=== PATIENT | female | born 1960 | race Caucasian/White ===

== ENCOUNTER 2020-08-22 17:03 | Inpatient (IN) ==
--- NOTE | 2020-08-22 16:56 | Emergency Department Note ---
Impression & Plan ICH (intracerebral hemorrhage), Acute right-sided weakness, Anisocoria ED Provider Note NAME: CHEMA CARVALHO AGE: 60 SEX: F : 1960 ARRIVES VIA: Ambulance INFORMANT: Patient, ED PROVIDER(S): Hitesh Dominique MD Chief Complaint: Strokelike symptoms HPI: I did receive a medical command call from EMS due to concern for a possible stroke in a 61-year-old patient who is presenting due to concern for the only r esponsive to painful stimuli. Patient reportedly had left-sided facial droop and right pupil dilated. Patient's BSG was normal. The patient does wear 3 L at all times satting at 98% with normal heart rate and blood pressure. Last known well was noon. No reported blood thinners or trauma. The patient is a dialysis patient did receive dialysis yesterday. Patient did arrive and the patient did move the left side but was minimally responsive. Nonverbal. The patient does have left greater than right anisocoria with a leftward gaze. Patient is on Eliquis for history of A. fib. I did review the transfer note which stated that the nurse that evaluated the patient and that she was not responding appropriately. Patient does not normal from her baseline. ROS: See HPI for pertinent positives and negatives. A total of 10 systems were reviewed and otherwise negative. Past medical history: See below Surgical history: See below Social history: See below Physical Exam: GENERAL: Significant distress, nasal cannula in place. EYE EXAM: Normal conjunctiva. Left greater than right anisocoria, virtually nonreactive. NECK: Supple, no nuchal rigidity, no adenopathy, non-tender. No signs of meningismus. LUNGS: Clear to auscultation. Normal chest wall mechanics. HEART: NSR, no MRG. ABDOMEN: Abdomen soft, non-tender, normo-active bowel sounds, no masses, no rebound or guarding. BACK: No CVA TTP. SKIN: No rashes and no bruising. UPPER EXTREMITIES: Left upper extremity AV fistula in place with palpable thrill. LOWER EXTREMITIES: Grossly normal, no edema. NEURO EXAM: Left-sided greater than right anisocoria, L gaze preference, right- sided facial droop, right-sided weakness and neglect, nonverbal. Responsive to pain. GCS of 7. Differential diagnoses: Infection, dehydration, metabolic abnormality, hypo/hyperglycemia, electrolyte disturbance, anemia, hypoxia, cardiac sources, intracerebral event, toxicologic, neurologic, as well as other pathologies. Course: Patient was seen and evaluated the bedside. Full history physical exam was performed. Imaging Studies: See below Cardiac monitoring: An order was placed for continuous cardiac monitoring. The monitor shows a rate of 88 with sinus rhythm. MDM: Patient was seen due to concern for significant strokelike symptoms. The patient did have a very high NIH. A code stroke was initiated and a CT of the head does show a very large left-sided bleed with significant shift. I did call the patient's mother who stated that she would not want aggressive interventions, chest compressions or intubation. I did briefly discuss the case and the CAT scan of the brain with the telestroke neurologist Dr. Cerna who did agree that given the significant shift, large size of bleed, and poor exam that the patient would likely have a very poor functional outcome. I did call the patient's mother, Ms. Munguia, back again who did agree that she just wanted to make her daughter comfortable. She did not want any aggressive interventions, chest compressions or intubation. A morphine drip was ordered. Dry nasal Covid swab was ordered I did speak the on-call hospitalist Dr. Cox. The patient was admitted to the medicine service. Critical Care: I have personally spent 36 minutes of critical care time in direct management of this patient. This includes bedside care, interpretation of diagnostic studies, and testing, discussion with consultants, patient, and family members, and other require inpatient management activities. This 36 minutes is in excess of all separately billable procedures. Past Med/Surg History Medical History AVF (arteriovenous fistula) ESRD (end stage renal disease) H/O: HTN (hypertension) Social History Smoking Status: Unknown if ever smoked Feels Safe at Home: Yes Allergies Allergies Allergy/AdvReac Type Severity Reaction Status Date / Time aspirin Allergy Unknown Abdominal Unverified 08/16/20 14:19 Pain Home Meds Home Medications Medication Instructions Recorded Confirmed amlodipine 5 mg PO QAM 08/16/20 08/22/20 apixaban 5 mg PO BID 08/16/20 08/22/20 atorvastatin 80 mg PO HS 08/16/20 08/22/20 calcium acetate 667 mg PO QID 08/16/20 08/22/20 cholecalciferol (vitamin D3) 125 mcg PO BID 08/16/20 08/22/20 [Vitamin D3] docusate sodium 100 mg PO BID 08/16/20 08/22/20 famotidine 20 mg PO 3XWK 08/16/20 08/22/20 furosemide 80 mg PO DAILY@59908/16/20 08/22/20 insulin glargine [Lantus U-100 20 unit SUBCUT Q12H 08/16/20 08/22/20 Insulin] isosorbide mononitrate 30 mg PO QAM 08/16/20 08/22/20 levothyroxine 175 mcg PO DAILY@0608/16/20 08/22/20 nitroglycerin 0.4 mg SUBLINGUAL Q5M PRN 08/16/20 08/22/20 nystatin 1 applic TOPICAL BID 08/16/20 08/22/20 pantoprazole 40 mg PO BID 08/16/20 08/22/20 umeclidinium [Incruse Ellipta] 1 inh INHALATION QAM 08/16/20 08/22/20 B complex with C 20-folic acid 1 cap PO HS 08/22/20 08/22/20 [Nephrocaps] albuterol sulfate [ProAir HFA] 2 puff INHALATION Q4H PRN 08/22/20 08/22/20 citalopram 40 mg PO QAM 08/22/20 08/22/20 darbepoetin marianna in polysorbat 60 mcg SUBCUT WK 08/22/20 08/22/20 [Aranesp (in polysorbate)] metoprolol succinate 50 mg PO QAM 08/22/20 08/22/20 Results & Data (ED) Vital Signs Vital Signs - 24 hr 08/22/20 17:15 08/22/20 17:21 08/22/20 17:25 Temperature 37.4 C Temperature Source Oral Pulse Rate 85 Pulse Rate [Apical] 89 Respiratory Rate 18 Respiratory Effort / Characteristics Blood Pressure 151/106 H Blood Pressure [Right Arm] 174/77 H Blood Pressure Mean 121 Blood Pressure Mean [Right Arm] 109 Pulse Oximetry 100 97 Oxygen Delivery Method Nasal Cannula Nasal Cannula Nasal Cannula Oxygen Flow Rate 3 3 3 Sepsis New/Unexplained Change in Mental Status No Sepsis Action Taken by Nursing No Action Required 08/22/20 17:30 08/22/20 18:01 Temperature Temperature Source Pulse Rate Pulse Rate [Apical] 89 88 Respiratory Rate 18 20 Respiratory Effort / Characteristics Non-Labored Spontaneous Blood Pressure Blood Pressure [Right Arm] 166/67 H 173/80 H Blood Pressure Mean Blood Pressure Mean [Right Arm] 100 111 Pulse Oximetry 98 100 Oxygen Delivery Method Nasal Cannula Nasal Cannula Oxygen Flow Rate 3 3 Sepsis New/Unexplained Change in Mental Status Sepsis Action Taken by Longterm Medications Current Medication List: was personally reviewed by me Laboratory Data Attestation: I reviewed the patient's lab results. Result diagrams: 08/22/20 17:14 Lab Results 08/22/20 08/22/20 08/22/20 Range/Units 17:14 17:14 17:14 PT Cancelled INR Cancelled APTT Cancelled PTT Ratio Cancelled Sodium Cancelled Potassium Cancelled Chloride Cancelled Carbon Dioxide Cancelled Anion Gap Cancelled BUN Cancelled Creatinine Cancelled Est Cr Clr Drug Dosing Cancelled Est GFR ( Amer) Cancelled Est GFR (Non-Af Amer) Cancelled BUN/Creatinine Ratio Cancelled Glucose Cancelled Calcium Cancelled Magnesium Cancelled Total Bilirubin Cancelled AST Cancelled ALT Cancelled Alkaline Phosphatase Cancelled Troponin I Cancelled Total Protein Cancelled Albumin Cancelled Globulin Cancelled Albumin/Globulin Ratio Cancelled COVID-19 Eval Order SARS-CoV-2, RNA, NAAT (NEGATIVE) Blood Type Cancelled Antibody Screen Cancelled 08/22/20 08/22/20 Range/Units 17:40 17:40 PT INR APTT PTT Ratio Sodium Potassium Chloride Carbon Dioxide Anion Gap BUN Creatinine Est Cr Clr Drug Dosing Est GFR ( Amer) Est GFR (Non-Af Amer) BUN/Creatinine Ratio Glucose Calcium Magnesium Total Bilirubin AST ALT Alkaline Phosphatase Troponin I Total Protein Albumin Globulin Albumin/Globulin Ratio COVID-19 Eval Order Covid19 IDNow atMMDC SARS-CoV-2, RNA, NAAT NEGATIVE (NEGATIVE) Blood Type Antibody Screen Administered Medications Morphine Sulfate (Morphine Sulf/Nss) 250 mg in 250 mls @ 1 mls/hr IV .Q96H [facility]; Protocol Stop: 09/05/20 17:29 Last Admin: 08/22/20 17:39 Dose: 1 mg/hr, 1 mls/hr Documented by: [id number] Cosigned by: [id number] Imaging Data Radiologist's Impression: Head CT 08/22/20 17:06 CT head/brain wo con CLINICAL HISTORY: R sided weakness, anisocoria COMPARISON STUDY: No previous studies for comparison. TECHNIQUE: Axial CT of the brain is performed from the vertex to the skull base. IV contrast was not administered for this examination. A dose lowering technique was utilized adhering to the principles of ALARA. CT DOSE: 773.57 mGy.cm FINDINGS: There is a 7.8 cm intraparenchymal hemorrhage involving the left frontal and parietal lobes and left thalamus. There is surrounding vasogenic edema with effacement of the cortical sulci. There is marked mass effect on the ventricles with 15 mm of [id number] midline shift. There is equivocal decreased attenuation involving the posterior aspect of the corpus callosum There is early hydrocephalus with dilatation of the temporal horns. There is no evidence of acute sinusitis IMPRESSION: 1. Acute 7.8 cm left hemispheric intraparenchymal hemorrhage with secondary white matter edema, cortical effacement, and mass effect with 15 mm of left-to- right midline shift. There is early hydrocephalus. This report was discussed with Dr. Dominique at 5:15 PM ACT 112: Negative or not required by law. Electronically signed by: Elgin Santoro M.D. 08/22/2020 5:15 PM Discharge Plan Visit Data Chief Complaint: Stroke Alert Stated Complaint: STROKE ALERT ED Provider: Hitesh Dominique Discharge Problem: ICH (intracerebral hemorrhage), Acute right-sided weakness, [facility] Forms Stand Alone Forms: My [facility] Prescriptions Prescriptions: No Action atorvastatin 40 mg Tablet 80 mg PO HS RF: 0 levothyroxine 175 mcg Tablet 175 mcg PO DAILY@0600 RF: 0 Lantus U-100 Insulin 100 unit/mL Solution 20 unit SUBCUT Q12H RF: 0 isosorbide mononitrate 30 mg Tablet Extended Release 24 Hr 30 mg PO QAM RF: 0 amlodipine 5 mg Tablet 5 mg PO QAM RF: 0 famotidine 20 mg Tablet 20 mg PO 3XWK RF: 0 furosemide 80 mg Tablet 80 mg PO DAILY@0600 RF: 0 pantoprazole 40 mg Tablet,Delayed Release (Dr/Ec) 40 mg PO BID RF: 0 docusate sodium 100 mg Capsule 100 mg PO BID RF: 0 nystatin 100,000 unit/gram Powder 1 applic TOPICAL BID RF: 0 cholecalciferol (vitamin D3) [Vitamin D3] 125 mcg (5,000 unit) Tablet 125 mcg PO BID RF: 0 apixaban 5 mg Tablet 5 mg PO BID RF: 0 Incruse Ellipta 62.5 mcg/actuation Blister With Device 1 inh INHALATION QAM RF: 0 calcium acetate 667 mg Tablet 667 mg PO QID RF: 0 nitroglycerin 0.4 mg Tablet, Sublingual 0.4 mg sublingual Q5M PRN (Reason: Chest Pain) RF: 0 citalopram 20 mg Tablet 40 mg PO QAM RF: 0 metoprolol succinate 25 mg Tablet Extended Release 24 Hr 50 mg PO QAM RF: 0 Nephrocaps 1 mg Capsule 1 cap PO HS RF: 0 albuterol sulfate [ProAir HFA] 90 mcg/actuation HFA aerosol inhaler 2 puff INHALATION Q4H PRN (Reason: Wheezing) RF: 0 Aranesp (in polysorbate) 60 mcg/mL Solution 60 mcg subcut WK RF: 0 Discharge Problem: ICH (intracerebral hemorrhage) Qualifiers: Intracerebral hemorrhage etiology: nontraumatic Cerebral hemorrhage location: unspecified cerebral location Laterality: left Qualified Code(s): I61.9 - Nontraumatic intracerebral hemorrhage, unspecified
--- NOTE | 2020-08-22 17:16 | CT Scan Report ---
CT head/brain wo con CLINICAL HISTORY: R sided weakness, anisocoria COMPARISON STUDY: No previous studies for comparison. TECHNIQUE: Axial CT of the brain is performed from the vertex to the skull base. IV contrast was not administered for this examination. A dose lowering technique was utilized adhering to the principles of ALARA. CT DOSE: 773.57 mGy.cm FINDINGS: There is a 7.8 cm intraparenchymal hemorrhage involving the left frontal and parietal lobes and left thalamus. There is surrounding vasogenic edema with effacement of the cortical sulci. There is marked mass effect on the ventricles with 15 mm of [id number] midline shift. There is equivocal decreased attenuation involving the posterior aspect of the corpus callosum There is early hydrocephalus with dilatation of the temporal horns. There is no evidence of acute sinusitis IMPRESSION: 1. Acute 7.8 cm left hemispheric intraparenchymal hemorrhage with secondary white matter edema, corti julian effacement, and mass effect with 15 mm of [id number] midline shift. There is early hydrocephal us. This report was discussed with Dr. Dominique at 5:15 PM ACT 112: Negative or not required by law. Electronically signed by: Elgin Santoro M.D. 08/22/2020 5:15 PM
[2020-08-22] MEDS ORDERED: STAT IV Infusion **Titration per Protocol STA (17:23)
[2020-08-22] MEDS ORDERED: MoRPHine SULF/NSS 250 MG/250 ML BTL IV SCH (17:30)
--- NOTE | 2020-08-22 18:50 | History & Physical Report ---
Date of Service August 22, 2020 Assessment & Plan (1) ICH (intracerebral hemorrhage): This patient is a 60-year-old female with a history of ESRD on hemodialysis, HTN, chronic diastolic CHF, atrial fibrillation on Eliquis, hypothyroidism, anemia of chronic kidney disease, depression, hyperlipidemia, GERD, JOSE RAFAEL on CPAP, chronic respiratory failure with hypoxia who presents from [facility] rehab after being found unresponsive and with a right-sided weakness and right-sided facial droop with a blown left pupil. She had a recent hospitalization at [facility] in [place] for acute sigmoid diverticulitis and was discharged to [facility] for rehab for generalized weakness. She was seen in this ER on 08/16 for chest pain that was deemed to be secondary to GERD and not cardiac in nature. Her last known well time was at 12:00 noon on the day of admission. She was then found to be unresponsive as above at 1600 and was brought to the ER. A stroke alert was called and a noncontrast CT of the head showed a significant acute 7.8 cm left hemispheric intraparenchymal hemorrhage with secondary white matter edema, cortical effacement, and mass-effect with 15 mm of left to right midline shift with early hydrocephalus. In the ER, she was only occasionally initially responsive to painful stimulus, but but would not respond to me at all with painful stimulus. She was snoring and unresponsive, would not follow commands and was flaccid on the right, with some spasticity on the left side with tactile stimulation. The ER physician contacted the patient's mother who is her point of contact and also discussed her care with the [facility] stroke team. The patient's mother did not want the patient to be transferred for neurosurgery intervention and requested that she be transitioned to comfort measures only. She will come to see the patient right away. She was unavailable at the bedside yet when I saw the patient. The patient was placed on a morphine drip prior to to when I admitted her. She will be admitted for comfort measures only status for significant hemorrhagic CVA with midline shift and impending herniation. -Admit to medical/surgical floor on comfort measures only status -Continue morphine drip and titrate as needed for comfort -Lorazepam as needed for agitation or anxiety -Atropine drops as needed for excessive secretions -Discontinue all lab draws, no hemodialysis -Palliative care consultation placed All home medications will be discontinued No need for Vaz catheter as patient is dialysis patient and likely has minimal to no urine output Expect patient to pass away in the next 24 to 48 hours. (2) Anisocoria: (3) Acute right-sided weakness: (4) JOSE RAFAEL on CPAP: (5) H/O: HTN (hypertension): (6) ESRD (end stage renal disease): (7) GERD (gastroesophageal reflux disease): (8) Paroxysmal atrial fibrillation: (9) Chronic diastolic CHF (congestive heart failure): (10) Chronic respiratory failure with hypoxia: (11) Diabetes mellitus: History of Present Illness Chief Complaint: Unresponsive Primary Care Provider: Allison Gregg DO This patient is a 60-year-old female with a history of ESRD on hemodialysis, HTN, chronic diastolic CHF, atrial fibrillation on Eliquis, hypothyroidism, anemia of chronic kidney disease, depression, hyperlipidemia, GERD, JOSE RAFAEL on CPAP, chronic respiratory failure with hypoxia who presents from [facility] after being found unresponsive and with a right-sided weakness and right- sided facial droop with a blown left pupil. She had a recent hospitalization at [facility] in [place] for acute sigmoid diverticulitis and was discharged to [facility] for rehab for generalized weakness. She was seen in this ER on 08/16 for chest pain that was deemed to be secondary to GERD and not cardiac in nature. Her last known well time was at 12:00 noon on the day of admission. She was then found to be unresponsive as above at 1600 and was brought to the ER. A stroke alert was called and a noncontrast CT of the head showed a significant acute 7.8 cm left hemispheric intraparenchymal hemorrhage with secondary white matter edema, cortical effacement, and mass-effect with 15 mm of left to right midline shift with early hydrocephalus. In the ER, she was only occasionally initially responsive to painful stimulus, but but would not respond to me at all with painful stimulus. She was snoring and unresponsive, would not follow commands and was flaccid on the right, with some spasticity on the left side with tactile stimulation. The ER physician contacted the patient's mother who is her point of contact and also discussed her care with the [place] stroke team. The patient's mother did not want the patient to be transferred for neurosurgery intervention and requested that she be transitioned to comfort measures only. She will come to see the patient right away. She was unavailable at the bedside yet when I saw the patient. The patient was placed on a morphine drip prior to to when I admitted her. She will be admitted for comfort measures only status for significant hemorrhagic CVA with midline shift and impending herniation. Allergies Allergy/AdvReac Type Severity Reaction Status Date / Time aspirin Allergy Unknown Abdominal Unverified 08/16/20 14:19 Pain Home Medications Medication Instructions Recorded Confirmed Type amlodipine 5 mg PO QAM 08/16/20 08/22/20 History apixaban 5 mg PO BID 08/16/20 08/22/20 History atorvastatin 80 mg PO HS 08/16/20 08/22/20 History calcium acetate 667 mg PO QID 08/16/20 08/22/20 History cholecalciferol (vitamin D3) 125 mcg PO BID 08/16/20 08/22/20 History [Vitamin D3] docusate sodium 100 mg PO BID 08/16/20 08/22/20 History famotidine 20 mg PO 3XWK 08/16/20 08/22/20 History furosemide 80 mg PO DAILY@0600 08/16/20 08/22/20 History insulin glargine [Lantus U-100 20 unit SUBCUT Q12H 08/16/20 08/22/20 History Insulin] isosorbide mononitrate 30 mg PO QAM 08/16/20 08/22/20 History levothyroxine 175 mcg PO DAILY@0600 08/16/20 08/22/20 History nitroglycerin 0.4 mg SUBLINGUAL Q5M PRN 08/16/20 08/22/20 History nystatin 1 applic TOPICAL BID 08/16/20 08/22/20 History pantoprazole 40 mg PO BID 08/16/20 08/22/20 History umeclidinium [Incruse Ellipta] 1 inh INHALATION QAM 08/16/20 08/22/20 History B complex with C 20-folic acid 1 cap PO HS 08/22/20 08/22/20 History [Nephrocaps] albuterol sulfate [ProAir HFA] 2 puff INHALATION Q4H PRN 08/22/20 08/22/20 History citalopram 40 mg PO QAM 08/22/20 08/22/20 History darbepoetin marianna in polysorbat 60 mcg SUBCUT WK 08/22/20 08/22/20 History [Aranesp (in polysorbate)] metoprolol succinate 50 mg PO QAM 08/22/20 08/22/20 History Past Med/Surg History Medical History (Updated 08/22/20 @ 19:31 by Gail Cox MD) AVF (arteriovenous fistula) Chronic diastolic CHF (congestive heart failure) Chronic respiratory failure with hypoxia Diabetes mellitus ESRD (end stage renal disease) GERD (gastroesophageal reflux disease) H/O: HTN (hypertension) JOSE RAFAEL on CPAP Paroxysmal atrial fibrillation Surgical History History of arteriovenous malformation Family History Other Family history non-contributory Social History Smoking Status: Unknown if ever smoked Feels Safe at Home: Yes Review of Systems Review of Systems: Unobtainable due to cognitive status and Unobtainable due to reduced consciousness Physical Exam Constitutional: WD/WN, vitals as above + ill appearing, + obese and + lethargic Eyes: + anisocoria (Blown left pupil) ENMT: external ear and nose normal, oropharynx normal Neck: trachea midline, no thyromegaly Respiratory: normal respiratory effort (With some snoring) Auscultation: + rhonchi (Some upper airway coarse breath sounds) Cardiovascular: RRR, no murmur, no edema Gastrointestinal (Abdomen): normal bowel sounds, soft, nontender, no hepatospl enomegaly Musculoskeletal: Extremities: extremities normal to inspection; no cyanosis and no clubbing Skin: + ecchymosis (On right dorsal foot) Neurologic: + obtunded Does not follow commands, nonverbal, responds to some painful stimulus only on left side with some spasticity, flaccid on the right side Left pupil blown and not reactive to light, right pupil pinpoint Results & Data Results & [facility] ([facility]) Vital Signs (Past 12 Hours) Vital Signs Temp Pulse Pulse Resp BP BP Pulse Ox 08/22/20 18:01 88 20 173/80 H 100 08/22/20 17:30 89 18 166/67 H 98 08/22/20 17:25 89 174/77 H 97 08/22/20 17:15 37.4 C 85 18 151/106 H 100 Laboratory Results 08/22/20 08/22/20 08/22/20 Range/Units 17:40 17:40 17:14 PT INR APTT PTT Ratio Sodium Cancelled Potassium Cancelled Chloride Cancelled Carbon Dioxide Cancelled Anion Gap Cancelled BUN Cancelled Creatinine Cancelled Est Cr Clr Drug Dosing Cancelled Est GFR ( Amer) Cancelled Est GFR (Non-Af Amer) Cancelled BUN/Creatinine Ratio Cancelled Glucose Cancelled Calcium Cancelled Magnesium Cancelled Total Bilirubin Cancelled AST Cancelled ALT Cancelled Alkaline Phosphatase Cancelled Troponin I Cancelled Total Protein Cancelled Albumin Cancelled Globulin Cancelled Albumin/Globulin Ratio Cancelled COVID-19 Eval [facility] SARS-CoV-2, RNA, NAAT NEGATIVE (NEGATIVE) Blood Type Antibody Screen 08/22/20 08/22/20 Range/Units 17:14 17:14 PT Cancelled INR Cancelled APTT Cancelled PTT Ratio Cancelled Sodium Potassium Chloride Carbon Dioxide Anion Gap BUN Creatinine Est Cr Clr Drug Dosing Est GFR ( Amer) Est GFR (Non-Af Amer) BUN/Creatinine Ratio Glucose Calcium Magnesium Total Bilirubin AST ALT Alkaline Phosphatase Troponin I Total Protein Albumin Globulin Albumin/Globulin Ratio COVID-19 Eval Order SARS-CoV-2, RNA, NAAT (NEGATIVE) Blood Type Cancelled Antibody Screen Cancelled Diagnostic Findings Head CT 08/22/20 17:06 CT head/brain wo con CLINICAL HISTORY: R sided weakness, anisocoria COMPARISON STUDY: No previous studies for comparison. TECHNIQUE: Axial CT of the brain is performed from the vertex to the skull base. IV contrast was not administered for this examination. A dose lowering technique was utilized adhering to the principles of ALARA. CT DOSE: 773.57 mGy.cm FINDINGS: There is a 7.8 cm intraparenchymal hemorrhage involving the left frontal and parietal lobes and left thalamus. There is surrounding vasogenic edema with effacement of the cortical sulci. There is marked mass effect on the ventricles with 15 mm of [id number] midline shift. There is equivocal decreased attenuation involving the posterior aspect of the corpus callosum There is early hydrocephalus with dilatation of the temporal horns. There is no evidence of acute sinusitis IMPRESSION: 1. Acute 7.8 cm left hemispheric intraparenchymal hemorrhage with secondary white matter edema, cortical effacement, and mass effect with 15 mm of [id number] midline shift. There is early hydrocephalus. This report was discussed with Dr. Dominique at 5:15 PM ACT 112: Negative or not required by law. Electronically signed by: Elgin Santoro M.D. 08/22/2020 5:15 PM ECG Additional Comments: No ECG performed, telemetry with sinus rhythm and normal rates Code Status & VTE Plan Code Status DNR/DNI VTE Prophylaxis Plan VTE Prophylaxis will be ordered: No Reason for no VTE drug order: Contraindicated Reason for no VTE mechanical prophylaxis: Treatment not tolerated PG Care Time/CCT Total # of Minutes Spent Total Time Spent with Patient: Total time spent is greater than 50% in coordination of care (as documented) at patient's floor/unit and/or counseling patient: Coding Level of Care Code 75059 Initial Inpt Care Lvl 1 Diagnoses ICH (intracerebral hemorrhage) I61.9 Cerebral hemorrhage location: unspecified cerebral location Intracerebral hemorrhage etiology: nontraumatic Laterality: left Anisocoria H57.02 Acute right-sided weakness R53.1 JOSE RAFAEL on CPAP G47.33; Z99.89 H/O: HTN (hypertension) Z86.79 ESRD (end stage renal disease) N18.6 GERD (gastroesophageal reflux disease) K21.9 Paroxysmal atrial fibrillation I48.0 Chronic diastolic CHF (congestive heart failure) I50.32 Chronic respiratory failure with hypoxia J96.11 Diabetes mellitus E11.9 (1) ICH (intracerebral hemorrhage) Cerebral hemorrhage location: unspecified cerebral location Intracerebral hemorrhage etiology: nontraumatic Laterality: left Qualified Code(s): I61.9 - Nontraumatic intracerebral hemorrhage, unspecified
[2020-08-22] MEDS ORDERED: LORazepam 0.5 MG/1 ML VIAL IV PRN (21:00)
[2020-08-22] MEDS ORDERED: ONDANSETRON INJ 2 MG/ML 2 ML VIAL IV PRN (21:00)
[2020-08-22] MEDS ORDERED: MoRPHine SULFATE 5 MG/0.25 ML UDP PO PRN (21:00)
[2020-08-22] MEDS ORDERED: LORazepam 0.5 MG TAB PO PRN (21:00)
[2020-08-22] MEDS ORDERED: LORazepam 2 MG/4 ML VIAL IV PRN (21:00)
[2020-08-22] MEDS ORDERED: ATROPINE SULFATE 1% OP SOLN 5 ML BTL SL PRN (21:00)
[2020-08-23] MEDS ORDERED: STAT IV Infusion **Titration per Protocol STA (11:59)
[2020-08-23] MEDS ORDERED: HYDROmorphone INJ 0.5 MG/0.5 ML SYR IV PRN (11:59)
[2020-08-23] MEDS ORDERED: HYDROmorphone/NSS 100 MG/100 ML BAG IV SCH (12:00)
--- NOTE | 2020-08-23 13:04 | Hospitalist Progress Note ---
Date of Service August 23, 2020 Assessment & Plan (1) ICH (intracerebral hemorrhage): This patient is a 60-year-old female with a history of ESRD on hemodialysis, HTN, chronic diastolic CHF, atrial fibrillation on Eliquis, hypothyroidism, anemia of chronic kidney disease, depression, hyperlipidemia, GERD, JOSE RAFAEL on CPAP, chronic respiratory failure with hypoxia who presents from [facility] rehab after being found unresponsive and with a right-sided weakness and right-sided facial droop with a blown left pupil. She had a recent hospitalization at [facility] in [place] for acute sigmoid diverticulitis and was discharged to [facility] for rehab for generalized weakness. She was seen in this ER on 08/16 for chest pain that was deemed to be secondary to GERD and not cardiac in nature. Her last known well time was at 12:00 noon on the day of admission. She was then found to be unresponsive as above at 1600 and was brought to the ER. A stroke alert was called and a noncontrast CT of the head showed a significant acute 7.8 cm left hemispheric intraparenchymal hemorrhage with secondary white matter edema, cortical effacement, and mass-effect with 15 mm of left to right midline shift with early hydrocephalus. In the ER, she was only occasionally initially responsive to painful stimulus, but but would not respond to me at all with painful stimulus. She was snoring and unresponsive, would not follow commands and was flaccid on the right, with some spasticity on the left side with tactile stimulation. The ER physician contacted the patient's mother who is her point of contact and also discussed her care with the [facility] stroke team. The patient's mother did not want the patient to be transferred for neurosurgery intervention and requested that she be transitioned to comfort measures only. She will come to see the patient right away. She was unavailable at the bedside yet when I saw the patient. The patient was placed on a morphine drip prior to to when I admitted her. She will be admitted for comfort measures only status for significant hemorrhagic CVA with midline shift and impending herniation. -Admit to medical/surgical floor on comfort measures only status -Continue morphine drip and titrate as needed for comfort - resting comfortable all day -Lorazepam as needed for agitation or anxiety -Atropine drops as needed for excessive secretions -Discontinue all lab draws, no hemodialysis -Palliative care consultation placed All home medications will be discontinued No need for Vaz catheter as patient is dialysis patient and likely has minimal to no urine output Expect patient to pass away in the next 24 to 48 hours. family at bedside, offered empathy, no questions (2) Anisocoria: (3) Acute right-sided weakness: (4) JOSE RAFAEL on CPAP: (5) H/O: HTN (hypertension): (6) ESRD (end stage renal disease): (7) GERD (gastroesophageal reflux disease): (8) Paroxysmal atrial fibrillation: (9) Chronic diastolic CHF (congestive heart failure): (10) Chronic respiratory failure with hypoxia: (11) Diabetes mellitus: Admission and Anticipated Discharge Date Admission Date: August 22, 2020 Subjective patient unresponsive on morphine drip family at the bedside, they do not have any questions Review of Systems Review of Systems: Unobtainable due to reduced consciousness Physical Exam Constitutional: well developed and + ill appearing; no acute distress Respiratory: normal respiratory effort Auscultation: + diminished lung sounds Cardiovascular: RRR, no murmur, no edema Gastrointestinal (Abdomen): Inspection/Auscultation: abdomen normal to inspection and + hypoactive bowel sounds Percussion/Palpation: abdomen soft Results & Data Results & Data ([facility]) Vital Signs (Past 12 Hours) Vital Signs Temp Pulse Resp BP Pulse Ox 08/23/20 11:44 37.1 C 76 18 139/75 100 Medications Administered Current Inpatient Medications Atropine Sulfate (Atropine Sulfate 1% Op Soln 5 Ml Btl) 4 drops SL Q1H PRN PRN Reason: Secretions or pulm congestion Stop: 09/21/20 20:59 Hydromorphone HCl (Hydromorphone Inj 0.5 Mg/0.5 Ml Syr) 0.5 mg IV Q30M PRN PRN Reason: Pain or dyspnea Stop: 09/06/20 11:58 Lorazepam (Ativan) 0.5 mg in 1 mls @ 1 mls/min IV Q4H PRN PRN Reason: Anxiety/Agitation Stop: 09/21/20 20:59 Lorazepam (Ativan) 2 mg in 4 mls @ 4 mls/min IV Q5M PRN PRN Reason: Seizures Hydromorphone HCl (Dilaudid/Nss) 100 mg in 100 mls @ 0.25 mls/hr IV .Q96H [facility]; Protocol Stop: 09/06/20 11:59 Lorazepam (Lorazepam 0.5 Mg Tab) 0.5 mg PO Q4H PRN PRN Reason: Anxiety/Agitation Stop: 09/21/20 20:59 Ondansetron HCl (Ondansetron Inj 2 Mg/Ml 2 Ml Vial) 4 mg IV Q4H PRN PRN Reason: Nausea And Vomiting Stop: 09/21/20 20:59 PG Care Time/CCT Total # of Minutes Spent Total Time Spent with Patient: Total time spent is greater than 50% in coordination of care (as documented) at patient's floor/unit and/or counseling patient: Coding Level of Care Code 27533 Subseq Hosp Care Lvl 1 Diagnoses ICH (intracerebral hemorrhage) I61.9 Cerebral hemorrhage location: unspecified cerebral location Intracerebral hemorrhage etiology: nontraumatic Laterality: left Anisocoria H57.02 Acute right-sided weakness R53.1 JOSE RAFAEL on CPAP G47.33; Z99.89 H/O: HTN (hypertension) Z86.79 ESRD (end stage renal disease) N18.6 GERD (gastroesophageal reflux disease) K21.9 Paroxysmal atrial fibrillation I48.0 Chronic diastolic CHF (congestive heart failure) I50.32 Chronic respiratory failure with hypoxia J96.11 Diabetes mellitus E11.9 (1) ICH (intracerebral hemorrhage) Cerebral hemorrhage location: unspecified cerebral location Intracerebral hemorrhage etiology: nontraumatic Laterality: left Qualified Code(s): I61.9 - Nontraumatic intracerebral hemorrhage, unspecified
--- NOTE | 2020-08-23 13:30 | Palliative Care Consultation ---
Date of Consultation August 23, 2020 Assessment & Plan (1) Palliative care encounter: I talked with Court's mother and sister at bedside. They very much want her to be comfortable and have a peaceful . Despite midline shift, her vital signs are stable and Court does not appear to be imminently dying. Given her renal failure, will rotate opioid to hydromorphone to avoid opioid toxicity. Discussed medication change with her family who are in agreement. We discussed her prognosis and that she is likely to within the next few days. We talked about what to expect and answered their questions about her current condition. (2) ICH (intracerebral hemorrhage): Cerebral hemorrhage location: unspecified cerebral location Intracerebral hemorrhage etiology: nontraumatic Laterality: left Qualified Code(s): I61.9 - Nontraumatic intracerebral hemorrhage, unspecified (3) Chronic respiratory failure with hypoxia: (4) ESRD (end stage renal disease): History of Present Illness Reason for Consultation: comfort care Requesting Physician: Dr. Cox Attending Physician: Chester Calloway DO History of Present Illness 60 yo lady with diabetes since adolescence who has ESRD and had been on hemodialysis. She was previously hospitalized at [facility] with sigmoid diverticulitis and per her mother has had ongoing problems with chest pain related to GERD. She had been at [facility] for rehab when she was found unresponsive. CT shows a 7.8cm left intraparenchymal bleed with a 15mm left shift. Her mother who lives with Court feels that she has had so much suffering in recent years with her GI issues and renal failure and has declined neurosurgery evaluation or transfer in favor of comfort directed approach for her care. Court is unresponsive. Per RN, she is flaccid with any movement with no facial grimacing or evidence of discomfort. Her mother notes that she has not had grimacing and feels that she is current comfortable. She is currently on a morphine infusion at 1mg/hr Allergies Allergy/AdvReac Type Severity Reaction Status Date / Time aspirin Allergy Unknown Abdominal Unverified 08/16/20 14:19 Pain Home Medications Medication Instructions Recorded Confirmed Type amlodipine 5 mg PO QAM 08/16/20 08/22/20 History apixaban 5 mg PO BID 08/16/20 08/22/20 History atorvastatin 80 mg PO HS 08/16/20 08/22/20 History calcium acetate 667 mg PO QID 08/16/20 08/22/20 History cholecalciferol (vitamin D3) 125 mcg PO BID 08/16/20 08/22/20 History [Vitamin D3] docusate sodium 100 mg PO BID 08/16/20 08/22/20 History famotidine 20 mg PO 3XWK 08/16/20 08/22/20 History furosemide 80 mg PO DAILY@0600 08/16/20 08/22/20 History insulin glargine [Lantus U-100 20 unit SUBCUT Q12H 08/16/20 08/22/20 History Insulin] isosorbide mononitrate 30 mg PO QAM 08/16/20 08/22/20 History levothyroxine 175 mcg PO DAILY@0600 08/16/20 08/22/20 History nitroglycerin 0.4 mg SUBLINGUAL Q5M PRN 08/16/20 08/22/20 History nystatin 1 applic TOPICAL BID 08/16/20 08/22/20 History pantoprazole 40 mg PO BID 08/16/20 08/22/20 History umeclidinium [Incruse Ellipta] 1 inh INHALATION QAM 08/16/20 08/22/20 History B complex with C 20-folic acid 1 cap PO HS 08/22/20 08/22/20 History [Nephrocaps] albuterol sulfate [ProAir HFA] 2 puff INHALATION Q4H PRN 08/22/20 08/22/20 History citalopram 40 mg PO QAM 08/22/20 08/22/20 History darbepoetin marianna in polysorbat 60 mcg SUBCUT WK 08/22/20 08/22/20 History [Aranesp (in polysorbate)] metoprolol succinate 50 mg PO QAM 08/22/20 08/22/20 History Patient History Medical History AVF (arteriovenous fistula) Chronic diastolic CHF (congestive heart failure) Chronic respiratory failure with hypoxia Diabetes mellitus ESRD (end stage renal disease) GERD (gastroesophageal reflux disease) H/O: HTN (hypertension) JOSE RAFAEL on CPAP Paroxysmal atrial fibrillation Surgical History History of arteriovenous malformation Family History Other Family history non-contributory Social History Smoking Status: Unknown if ever smoked Preferred Language: Congolese Communication Ability: Unable Crankshaft Grinder Required: No Beliefs That Will Affect Care: None Current Living Situation: Rehab Current Living Situation Comment: [facility] Feels Safe at Home: Yes Assistive Devices: Oxygen - Continuous Review of Systems Review of Systems: Unobtainable due to reduced consciousness [place] Symptom Assessment Scale PainAD 0/3 Dyspnea by observation 0/3 Palliative Performance Score 10% Physical Exam Constitutional: + altered mental status; no acute distress ENMT: Mouth: + dry oral mucous membranes Respiratory: normal respiratory effort; no labored breathing snoring Cardiovascular: Rate/Rhythm: regular rate and regular rhythm Gastrointestinal (Abdomen): Percussion/Palpation: abdomen nontender Musculoskeletal: Extremities: extremities normal to inspection Skin: warm and dry, no mottling Neurologic: + obtunded no myoclonus noted Results & Data ([facility]) Vital Signs (Past 12 Hours) Vital Signs Temp Pulse Resp BP Pulse Ox 08/23/20 11:44 98.8 F 76 18 139/75 100 PG Care Time/CCT Total # of Minutes Spent Total Time Spent with Patient: Total time spent is greater than 50% in coordination of care (as documented) at patient's floor/unit and/or counseling patient:total time spent 65 minutes with more than 50% of time spent on symptom management, family education and support, prognosis Coding Level of Care Code 64315 Initial Inpt Care Lvl 2 Diagnoses Palliative care encounter Z51.5 ICH (intracerebral hemorrhage) I61.9 Cerebral hemorrhage location: unspecified cerebral location Intracerebral hemorrhage etiology: nontraumatic Laterality: left Chronic respiratory failure with hypoxia J96.11 ESRD (end stage renal disease) N18.6 Time Spent (min) 65
--- NOTE | 2020-08-29 11:26 | Discharge Summary ---
Date of Service August 23, 2020 Admission HPI Per Admitting Provider This patient is a 60-year-old female with a history of ESRD on hemodialysis, HTN, chronic diastolic CHF, atrial fibrillation on Eliquis, hypothyroidism, anemia of chronic kidney disease, depression, hyperlipidemia, GERD, JOSE RAFAEL on CPAP, chronic respiratory failure with hypoxia who presents from [facility] rehab after being found unresponsive and with a right-sided weakness and right- sided facial droop with a blown left pupil. She had a recent hospitalization at [facility] in [place] for acute sigmoid diverticulitis and was discharged to [facility] for rehab for generalized weakness. She was seen in this ER on 08/16 for chest pain that was deemed to be secondary to GERD and not cardiac in nature. Her last known well time was at 12:00 noon on the day of admission. She was then found to be unresponsive as above at 1600 and was brought to the ER. A stroke alert was called and a noncontrast CT of the head showed a significant acute 7.8 cm left hemispheric intraparenchymal hemorrhage with secondary white matter edema, cortical effacement, and mass-effect with 15 mm of left to right midline shift with early hydrocephalus. In the ER, she was only occasionally initially responsive to painful stimulus, but but would not respond to me at all with painful stimulus. She was snoring and unresponsive, would not follow commands and was flaccid on the right, with some spasticity on the left side with tactile stimulation. The ER physician contacted the patient's mother who is her point of contact and also discussed her care with the [facility] stroke team. The patient's mother did not want the patient to be transferred for neurosurgery intervention and requested that she be transitioned to comfort measures only. She will come to see the patient right away. She was unavailable at the bedside yet when I saw the patient. The patient was placed on a morphine drip prior to to when I admitted her. She will be admitted for comfort measures only status for significant hemorrhagic CVA with midline shift and impending herniation. Principal Diagnosis Intracerebral hemorrhage Discharge Exam no pulses no respirations, no heart sounds, no breath sounds, pupils fixed, unresponsive Discharge Data Allergies Allergy/AdvReac Type Severity Reaction Status Date / Time aspirin Allergy Unknown Abdominal Unverified 08/16/20 14:19 Pain Consultations 08/22/20 17:46 ED Decision to Admit Stat 08/22/20 21:00 Consult Palliative Care Routine Ordered Studies 08/22/20 17:06 CT head/brain wo con Stat Hospital Course (1) ICH (intracerebral hemorrhage): This patient is a 60-year-old female with a history of ESRD on hemodialysis, HTN, chronic diastolic CHF, atrial fibrillation on Eliquis, hypothyroidism, anemia of chronic kidney disease, depression, hyperlipidemia, GERD, JOSE RAFAEL on CPAP, chronic respiratory failure with hypoxia who presents from [facility] rehab after being found unresponsive and with a right-sided weakness and right-sided facial droop with a blown left pupil. She had a recent hospitalization at [facility] in [place] for acute sigmoid diverticulitis and was discharged to [facility] for rehab for generalized weakness. She was seen in this ER on 08/16 for chest pain that was deemed to be secondary to GERD and not cardiac in nature. Her last known well time was at 12:00 noon on the day of admission. She was then found to be unresponsive as above at 1600 and was brought to the ER. A stroke alert was called and a noncontrast CT of the head showed a significant acute 7.8 cm left hemispheric intraparenchymal hemorrhage with secondary white matter edema, cortical effacement, and mass-effect with 15 mm of left to right midline shift with early hydrocephalus. In the ER, she was only occasionally initially responsive to painful stimulus, but but would not respond to me at all with painful stimulus. She was snoring and unresponsive, would not follow commands and was flaccid on the right, with some spasticity on the left side with tactile stimulation. The ER physician contacted the patient's mother who is her point of contact and also discussed her care with the [facility] stroke team. The patient's mother did not want the patient to be transferred for neurosurgery intervention and requested that she be transitioned to comfort measures only. She will come to see the patient right away. She was unavailable at the bedside yet when I saw the patient. The patient was placed on a morphine drip prior to to when I admitted her. She will be admitted for comfort measures only status for significant hemorrhagic CVA with midline shift and impending herniation. -Admit to medical/surgical floor on comfort measures only status -Continue morphine drip and titrate as needed for comfort - resting comfortable all day -Lorazepam as needed for agitation or anxiety -Atropine drops as needed for excessive secretions -Discontinue all lab draws, no hemodialysis -Palliative care consultation placed All home medications will be discontinued No need for Vaz catheter as patient is dialysis patient and likely has minimal to no urine output patient at 1925 family notified (2) Anisocoria: (3) Acute right-sided weakness: (4) JOSE RAFAEL on CPAP: (5) H/O: HTN (hypertension): (6) ESRD (end stage renal disease): (7) GERD (gastroesophageal reflux disease): (8) Paroxysmal atrial fibrillation: (9) Chronic diastolic CHF (congestive heart failure): (10) Chronic respiratory failure with hypoxia: (11) Diabetes mellitus: Total Time Total Time Spent Total Time Spent (In Minutes): 15 Discharge Plan Discharge Items Patient Disposition: Coding Level of Care Code D/C Day Management <30 mins Diagnoses ICH (intracerebral hemorrhage) I61.9 Cerebral hemorrhage location: unspecified cerebral location Intracerebral hemorrhage etiology: nontraumatic Laterality: left Anisocoria H57.02 Acute right-sided weakness R53.1 JOSE RAFAEL on CPAP G47.33; Z99.89 H/O: HTN (hypertension) Z86.79 ESRD (end stage renal disease) N18.6 GERD (gastroesophageal reflux disease) K21.9 Paroxysmal atrial fibrillation I48.0 Chronic diastolic CHF (congestive heart failure) I50.32 Chronic respiratory failure with hypoxia J96.11 Diabetes mellitus E11.9
== END 2020-08-23 21:06 | disposition expired | DRG 64 ==
LOC: ED 17:03 → SUATTDRO 18:36 → 3E 18:36